=== PATIENT | female | born 2000 | race Caucasian/White ===

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

== ENCOUNTER → 2019-03-28 08:31 | Outpatient (CLI) | payer BC, SELFPAY ==
--- NOTE | 2019-03-28 08:41 | US_ITS ---
PROCEDURE: US ABDOMEN LIMITED CLINICAL INDICATION: UMBILICAL HERNIA COMPARISON: ABDPELWO CT abdomen pelvis wo con from 10/23/2018 FINDINGS: Limited evaluation performed the abdominal wall at the region of the umbilicus showing no obvious hernia. No soft tissue mass or abnormal fluid collection. IMPRESSION: Unremarkable limited abdominal ultrasound as detailed above Dictated by: Cleve Barksdale MD 03/30/2019 11:51 Electronically signed by Cleve Barksdale MD in [place] 03/30/2019 11:51
== END ==
PROVIDERS: PCP Internal Medicine Adolescent Medicine; Visit Provider Internal Medicine Adolescent Medicine
DX: K42.9 Umbilical hernia without obstruction or gangrene (principal)
CPT/HCPCS: 76705

== ENCOUNTER → 2019-04-09 09:45 | Outpatient (CLI) | payer BC, SELFPAY ==
--- NOTE | 2019-04-09 09:46 | MR_ITS ---
PROCEDURE: MR ABDOMEN WO/W CON Patient Age:18Y CLINICAL INDICATION: umbilical hernia Pain at the right aspect of the umbilicus past 4 months. No nausea vomiting or diarrhea but does note a history of constipation. Skin marker placed where patient most sensitive. COMPARISON: Previous CT abdomen from October 2018; and ultrasound abdominal wall/umbilicus region from March 28 2019 reviewed. TECHNIQUE: Axial and coronal multisequence imaging performed on 1.5 valentina MR pre and post contrast postcontrast images performed following ProHance 13 mL. FINDINGS: Comparison is made to October CT. On today's MRI skin marker was placed upon the area of pain just to the right of the umbilicus.-this areas unremarkable; no significant umbilical hernia. Only scant fat along the on tract the to the umbilicus observed.. No inflammation no bowel loops associated with the umbilicus. No abnormal bulging or diastasis.. No abnormalities are seen within the a moderate subcutaneous fat beneath the skin marker,-SQ adipose measures up to 2.6 cm beneath the skin marker. But I would only note that there is prominent stool seen at the right colon and hepatic flexure I generous stool throughout the transverse colon on today's study. Pelvis was not included. Only minimal stool is seen at the descending colon. No small bowel dilatation but no the nor large bowel dilatation. No inflammation appreciated mesentery by this MR. The liver appears normal.. No ductal dilatation. Portal vein the common duct appears satisfactory The gallbladder is rather long likely with Phrygian cap however the gallbladder is not appear to be distended nor tense nor inflamed. The spleen appears of normal size overall. Region of pancreas unremarkable Kidneys: No obstructive uropathy no focal lesions but I would note prior October CT showed a tiny 3 mm calculus upper pole right kidney . Also some questionable developing pinpoint less than 1 mm calculi developing upper pole left kidney on that prior CT-but small calcifications of this character would not be appreciated on today's MR (asCT is much more sensitive calcium detector) The the IMPRESSION: 1.No abnormalities are seen beneath the skin marker to the right of the umbilicus . No abdominal wall hernia, nor significant umbilical hernia evident. No inflammatory changes this region evident. Abdominal musculature beneath this area unremarkable.. No acute findings visualized abdomen/upper most pelvis. 2.Minor observations: . Generous, increased solid stool throughout right colon &hepatic flexure near this region of tenderness. Appearance suggest moderate constipation involving right and transverse colon-as seen on previous CT from October . Slight more elongated appearing gallbladder noted but remains within normal limits Additional comment: Report was not initially available CT ABDOMEN PELVIS FROM OCTOBER 2018, but that prior CT study revealed: . Small tiny punctate renal calculi bilaterally. .. Moderate constipation, involving right & the transverse colon and rectosigmoid; . Also noted prominent right ovary measuring up to 5 cm with at least 4 cm right ovarian cyst on that October CT study.... May want to consider a follow-up pelvic ultrasound (pelvis was not included on today's MRI abdomen ) Dictated by: Rashid Piper MD 04/09/2019 13:07 Electronically signed by Rashid Piper MD in [place] 04/09/2019 13:07
== END ==
PROVIDERS: PCP Internal Medicine Adolescent Medicine; Visit Provider Surgery
DX: K42.9 Umbilical hernia without obstruction or gangrene (principal)
CPT/HCPCS: 74183; A9576

== ENCOUNTER → 2020-09-05 18:39 | Outpatient (CLI) | payer BC, SELFPAY ==
[2020-09-05 19:10] LABS: Basophils # 0.1 K/mm3 (0-0.2); Basophils % 0.7 % (0.1-2.0); Eosinophils # 0.2 K/mm3 (0.0-0.4); Eosinophils % 2.3 % (0.1-12.0); Hematocrit 38.9 % (37.0-47.0); Hemoglobin 12.9 g/dL (12.2-16.2); Mean Corpuscular HGB Conc 33.1 g/dL (31.8-35.4); Mean Corpuscular Volume 84.6 fl (81-99); Mean Platelet Volume 8.3 fl (7.4-10.4); Monocytes # 0.5 K/mm3 (0.1-1.0); Monocytes % 5.2 % (1.7-9.3); Neutrophils % 68.9 % (37.0-80.0); Platelet Count 277 K/mm3 (142-424); Red Cell Distribution Width 13.7 % (11.5-17.5); White Blood Count 8.7 K/mm3 (4.5-13.0)
[2020-09-05 19:46] LABS: 25-OH Vitamin D, Total 21.6 ng/mL (30-100)
[2020-09-05 20:08] LABS: Erythrocyte Sedimentation Rate 16 mm/hr (0-20)
[2020-09-05 20:48] LABS: Alanine Aminotransferase 10 U/L (12-78); Albumin Level 4.4 g/dl (3.5-5.0); Albumin/Globulin Ratio 1.7 (1.1-1.8); Alkaline Phosphatase 63 U/L (38-126); Anion Gap 10.4 mEq/L (5-15); Aspartate Amino Transferase 22 U/L (14-36); Bilirubin,Total 0.9 mg/dl (0.2-1.3); Blood Urea Nitrogen 9 mg/dl (7-17); Carbon Dioxide 27 mmol/L (22.0-30.0); Chloride 104 mmol/L (98-107); Estimated Glomerular Filt Rate 107 ml/min (>60); GFR (African American) 129 ML/MIN (>60); Globulin 2.6 g/dL (1.3-3.2); Glucose 120 mg/dl (74-100); Potassium 3.4 mmoL/L (3.5-5.1); Sodium 138 mmol/L (136-145)
[2020-09-05 20:53] LABS: C-Reactive Protein 3.8 mg/L (0-4)
[2020-09-05 21:19] LABS: Thyroid Stimulating Hormone 0.94 uIU/mL (0.465-4.68)
[2020-09-05 21:37] LABS: Vitamin B12 382 pg/mL (239-931)
== END ==
PROVIDERS: Visit Provider Nurse Practitioner Family
DX: L30.9 Dermatitis, unspecified (principal); R53.83 Other fatigue; E55.9 Vitamin D deficiency, unspecified
CPT/HCPCS: 80053; 82306; 82607; 83036; 84443; 85025; 85651; 86140